=== PATIENT | female | born 1985 | race Caucasian/White ===

== ENCOUNTER 2019-11-19 16:36 | Inpatient (IN) | payer BC ==
[~2019-11-19 16:36] MED LIST: Bupivacaine 0.25% 10 ML SDV ONE
[2019-11-19] MEDS ORDERED: Nalbuphine 10 MG/ML Syringe IVPUSH PRN (17:11)
[2019-11-19] MEDS ORDERED: Sodium Chloride 0.9% 10 ML Syringe FLUSH PRN (17:11)
[2019-11-19] MEDS ORDERED: Ondansetron 4 MG/2 ML SDV IVPUSH PRN ×2 (17:11→18:38)
--- NOTE | 2019-11-19 17:14 | PCM.LDHP ---
L&D History of Present Illness - General Date of Service: 11/19/19 Admit Problem/Dx: Patient Status Order with Admit Dx/Problem 11/19/19 17:12 Patient Status [ADT] Routine Admission Diagnosis/Problem Admission Diagnosis/Problem Normal labor Source of Information: Patient History Limitations: Reports: No Limitations - History of Present Illness Introduction:: Patient is a 34 y/o at 38 6/7 wks who presents in labor. Contractions started early this AM. Rates as a 09/08. No bleeding or LOF - Related Data Allergies/Adverse Reactions: Allergies Allergy/AdvReac Type Severity Reaction Status Date / Time No Known Allergies Allergy Verified 11/19/19 17:58 Past Medical History Respiratory History: Reports: Asthma Hematologic History: Reports: Blood Transfusion(s) - Past Surgical History HEENT Surgical History: Reports: LASIK Musculoskeletal Surgical History: Reports: Other (See Below) (bone cyst of arm) Social & Family History - Tobacco Use Smoking Status *Q: Never Smoker - Alcohol Use Alcohol Use History: No - Recreational Drug Use Recreational Drug Use: No H&P Review of Systems - Review of Systems: Review Of Systems: See Below General: Reports: No Symptoms Pulmonary: Reports: No Symptoms Cardiovascular: Reports: No Symptoms Gastrointestinal: Reports: Abdominal Pain Genitourinary: Reports: No Symptoms Musculoskeletal: Reports: No Symptoms Psychiatric: Reports: No Symptoms L&D Exam - Exam Exam: See Below - OB Specific Contraction Intensity: Moderate to Strong Movement: Active Heart Tones: Present Heart Tones per Min: 135 Heart Rate (FHR) Variability: Moderate (6-25 bmp) Presentation: Vertex - Barrientos Score Barrientos Score Cervix Position: Midposition Barrientos Score Consistency: Soft Barrientos Score Effacement: >80% Barrientos Score Dilation: > 5 cm Barrientos Score 's Station: -1 ,0 Barrientos Score Total: 11 - Exam General: Alert, Oriented, Cooperative Lungs: Clear to Auscultation, Normal Respiratory Effort Cardiovascular: Regular Rate, Regular Rhythm GI/Abdominal Exam: Soft, Non-Tender Extremities: Normal Inspection - Patient Data Result Diagrams: 11/19/19 17:40 - Problem List (1) 38 weeks gestation of SNOMED Code(s): 75408791 ICD Code: Z3A.38 - 38 WEEKS GESTATION OF Status: Acute Current Visit: Yes (2) Normal labor SNOMED Code(s): 64966361 ICD Code: O80 - ENCOUNTER FOR FULL-TERM UNCOMPLICATED DELIVERY; Z37.9 - OUTCOME OF DELIVERY, UNSPECIFIED Status: Acute Current Visit: Yes Problem List Initiated/Reviewed/Updated: Yes Orders Last 24hrs: Active Orders 24 hr Category Date Time Status Patient Status [ADT] Routine ADT 11/19/19 17:12 Ordered Activity as Tolerated [RC] PFP Care 11/19/19 17:12 Ordered Communication Order [RC] ASDIRECTED Care 11/19/19 17:12 Ordered Heart Tones [RC] ASDIRECTED Care 11/19/19 17:12 Ordered Non Stress Test [RC] PER UNIT ROUTINE Care 11/19/19 17:12 Ordered Notify Provider [RC] PRN Care 11/19/19 17:12 Ordered Peripheral IV Care [RC] . DIRECTED Care 11/19/19 17:12 Ordered Vital Signs [RC] PER UNIT ROUTINE Care 11/19/19 17:12 Ordered Regular Diet [DIET] Diet 11/19/19 Dinner Ordered CBC W/O DIFF,HEMOGRAM [HEME] Routine Lab 11/19/19 17:11 Ordered CORONAVIRUS COVID-19 LUIS A [MOLEC] Routine Lab 11/19/19 17:11 Ordered RAPID PLASMA REAGIN,RPR [CHEM] Routine Lab 11/19/19 17:12 Ordered TYPE AND SCREEN [BBK] Routine Lab 11/19/19 17:11 Ordered Lactated Ringers [Ringers, Lactated] 1,000 ml Med 11/19/19 17:15 Ordered IV ASDIRECTED Nalbuphine [Nubain] Med 11/19/19 17:11 Ordered 10 mg IVPUSH Q2H PRN Ondansetron [Zofran] Med 11/19/19 17:11 Ordered 4 mg IVPUSH Q4H PRN Oxytocin/Lactated Ringers [Pitocin in LR 10 Units/1,000 Med 11/19/19 17:15 Ordered ML] 10 unit in 1,000 ml IV .CONTINUOUS Sodium Chloride 0.9% [Saline Flush] Med 11/19/19 17:11 Ordered 10 ml FLUSH ASDIRECTED PRN Electronic Heart Tones Ext w TOCO [WOMSER] Oth 11/19/19 17:12 Ordered Routine Electronic Heart Tones Internal [WOMSER] Per Unit Oth 11/19/19 17:12 Ord ered Routine Peripheral IV Insertion Adult [OM.PC] Routine Oth 11/19/19 17:12 Ordered Resuscitation Status Routine Resus Stat 11/19/19 17:11 Ordered Assessment/Plan Comment:: * Labs done * GBS negative * Pain management per patient preference * Anticipate
[2019-11-19] MEDS ORDERED: Oxytocin/Lactated Ringers 10 UNIT/1,000 ML BAG IV SCH (17:15)
[2019-11-19] MEDS: Lactated Ringers 1,000 ML IV SCH ×2 (17:58→19:15)
[2019-11-19] MEDS ORDERED: fentaNYL 100 MCG/2 ML SDV EPIDUR PRN (18:38)
[2019-11-19] MEDS ORDERED: ePHEDrine 50 MG/ML SDV IVPUSH PRN (18:38)
--- NOTE | 2019-11-19 18:40 | PCM.PREANE ---
Preanesthetic Assessment - Anesthesia/Transfusion/Family Hx Anesthesia History: Prior Anesthesia Without Reaction Family History of Anesthesia Reaction: No Transfusion History: Prior Transfusion Without Reaction Intubation History: Unknown - Review of Systems General: No Symptoms Pulmonary: No Symptoms (Asthma- last used 6 months ago.) Cardiovascular: No Symptoms Gastrointestinal: No Symptoms (GERD), Nausea Neurological: No Symptoms Other: Reports: None - Physical Assessment NPO Status Date: 11/19/19 NPO Status Time: 10:00 Vital Signs: Last Vital Signs Temp 36.6 C 11/19/19 17:12 Pulse 87 11/19/19 17:12 Resp 16 11/19/19 17:12 BP 129/80 11/19/19 17:12 Pulse Ox Height: 1.7 m Weight: 67.132 kg ASA Class: 2 Mental Status: Alert & Oriented x3 Airway Class: Mallampati = 2 Dentition: Reports: Normal Dentition, Caries Thyro-Mental Finger Breadths: 3 Mouth Opening Finger Breadths: 3 ROM/Head Extension: Full Lungs: Clear to Auscultation, Normal Respiratory Effort Cardiovascular: Regular Rate, Regular Rhythm, No Murmurs - Lab Values: Laboratory Last Values WBC 14.15 K/mm3 (3.98-10.04) H 11/19/19 17:40 RBC 4.38 M/mm3 (3.98-5.22) 11/19/19 17:40 Hgb 13.9 gm/dl (11.2-15.7) 11/19/19 17:40 Hct 41.0 % (34.1-44.9) 11/19/19 17:40 MCV 93.6 fl (79.4-94.8) 11/19/19 17:40 MCH 31.7 pg (25.6-32.2) 11/19/19 17:40 MCHC 33.9 g/dl (32.2-35.5) 11/19/19 17:40 RDW Std Deviation 42.5 fL (36.4-46.3) 11/19/19 17:40 Plt Count 231 K/mm3 (182-369) 11/19/19 17:40 MPV 8.5 fl (9.4-12.3) L 11/19/19 17:40 Above labs reviewed and noted and within acceptable ranges to proceed with epidural. 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: Musculoskeletal History: Reports: Other (See Below) Other Musculoskeletal History: bone cyst left humerous removed Hematologic History: Reports: Blood Transfusion(s) - Past Surgical History HEENT Surgical History: Reports: LASIK Musculoskeletal Surgical History: Reports: Other (See Below) (bone cyst of arm) - SUBSTANCE USE Smoking Status *Q: Never Smoker Second Hand Smoke Exposure: No Recreational Drug Use History: No - HOME MEDS Home Medications: Home Meds Ascorbic Acid [Vitamin C] 1 tab PO DAILY 11/19/19 [History] Esomeprazole Magnesium [Nexium] 20 mg PO DAILY 11/19/19 [History] Lysine 1,000 mg PO DAILY 11/19/19 [History] Pnv No.95/Ferrous Fum/Folic AC [ Tablet] 1 each PO DAILY 11/19/19 [History] - CURRENT (IN HOUSE) MEDS Current Meds: Current Medications Ephedrine Sulfate (Ephedrine Sulfate) 5 mg IVPUSH ASDIRECTED PRN PRN Reason: Hypotension Oxytocin/Lactated Ringer's (Pitocin In Lr 10 Units/1,000 Ml) 10 unit in 1,000 mls @ 500 mls/hr IV .CONTINUOUS CHECO Lactated Ringer's (Ringers, Lactated) 1,000 mls @ 100 mls/hr IV ASDIRECTED CHECO Last Admin: 11/19/19 17:58 Dose: 400 mls/hr Documented by: Nalbuphine HCl (Nubain) 10 mg IVPUSH Q2H PRN PRN Reason: Pain Ondansetron HCl (Zofran) 4 mg IVPUSH Q4H PRN PRN Reason: Nausea/Vomiting Last Admin: 11/19/19 18:03 Dose: 4 mg Documented by: Ondansetron HCl (Zofran) 4 mg IVPUSH ONETIME PRN PRN Reason: Nausea/Vomiting Sodium Chloride (Saline Flush) 10 ml FLUSH ASDIRECTED PRN PRN Reason: Keep Vein Open
[2019-11-19] MEDS ORDERED: Phenylephrine 1 MG in Sodium Chloride 0.9% 10 ML IV SCH (18:45)
[2019-11-19] MEDS ORDERED: Bupivacaine/fentaNYL/NS 100 ML Bag EPIDUR SCH (18:45)
--- NOTE | 2019-11-20 00:34 | PCM.DEL ---
L & D Note - General Info Date of Service: 11/19/19 - Delivery Note Labor: Spontaneous Delivery Outcome: Livebirth Delivery Method: Spontaneous Vaginal Delivery-Single Delivery Mode: Vacuum Extraction Presentation: Right Occiput Anterior (OSCAR) Nuchal Cord: None Anesthesia Type: Epidural Amniotic Fluid Description: Clear Episiotomy Type: None Laceration: 2nd Degree, Perineal Suture type: Vicryl Suture size: 2-0 Placenta: Intact, Spontaneous Cord: 3 Vessels Estimated Blood Loss: 200 Resuscitation Needed: Yes Emerson: Bulb Syringe, Stimulated, Warmed, Harper Used, Warmer Used Delivery Comments (Free Text/Narrative):: The patient was pushing in the dorsal lithotomy position. Sterile vaginal exam complete/complete/+3-4 station. head in OSCAR presentation. Maternal pushing effort was good and the pelvis was felt to be adequate for an instrument assisted delivery. Given maternal exhaustion (pushed about 2.5 hrs) the decision was made to proceed with vacuum assisted vaginal delivery. The mushroom cup was placed at 2347. Subsequent vacuum assisted vaginal delivery with pushing over two contractions. Total pressure applied 550 mm Hg. Total pop offs: 0. Suction was removed following delivery of the head. No nuchal cord. The remainder of the infant delivered without difficulty. Delivery at 2354. Infant placed on maternal abdomen. Cord clamped and cut. Cord blood obtained. Placenta allowed time to separate and expelled intact. Inspection of the perineum showed a 2nd degree laceration. This was repaired with a 2-0 Vicryl in the typical fashion - General Info Date of Service: 11/19/19 - Patient Data Vitals - Most Recent: Last Vital Signs Temp 36.6 C 11/19/19 17:12 Pulse 87 11/19/19 17:12 Resp 16 11/19/19 17:12 BP 129/80 11/19/19 17:12 Pulse Ox 100 11/19/19 18:38 Weight - Most Recent: 67.132 kg I&O - Last 24 Hours: Intake & Output 11/19/19 11/19/19 11/20/19 14:59 22:59 06:59 Intake Total 1000 Output Total 700 Balance 300 Lab Results Last 24 Hours: Laboratory Results - last 24 hr 11/19/19 11/19/19 11/19/19 Range/Units 17:40 17:40 17:40 WBC 14.15 H (3.98-10.04) K/mm3 RBC 4.38 (3.98-5.22) M/mm3 Hgb 13.9 (11.2-15.7) gm/dl Hct 41.0 (34.1-44.9) % MCV 93.6 (79.4-94.8) fl MCH 31.7 (25.6-32.2) pg MCHC 33.9 (32.2-35.5) g/dl RDW Std Deviation 42.5 (36.4-46.3) fL Plt Count 231 (182-369) K/mm3 MPV 8.5 L (9.4-12.3) fl RPR Non-reactive (NONREACTIVE) COVID-19 (LUIS A) (NEGATIVE) Blood Type O POSITIVE Gel Antibody Screen Negative 11/19/19 Range/Units 19:39 WBC (3.98-10.04) K/mm3 RBC (3.98-5.22) M/mm3 Hgb (11.2-15.7) gm/dl Hct (34.1-44.9) % MCV (79.4-94.8) fl MCH (25.6-32.2) pg MCHC (32.2-35.5) g/dl RDW Std Deviation (36.4-46.3) fL Plt Count (182-369) K/mm3 MPV (9.4-12.3) fl RPR (NONREACTIVE) COVID-19 (LUIS A) Negative (NEGATIVE) Blood Type Gel Antibody Screen Med Orders - Current: Current Medications Ephedrine Sulfate (Ephedrine Sulfate) 5 mg IVPUSH ASDIRECTED PRN PRN Reason: Hypotension Fentanyl (Sublimaze) 100 mcg EPIDUR Q3H PRN PRN Reason: Pain Last Admin: 11/19/19 18:54 Dose: 100 mcg Documented by: Fentanyl/Bupivacaine HCl (Fentanyl/Bupivacaine/Ns 2 Mcg-0.125% 100 Ml) 100 ml EPIDUR ASDIRECTED CHECO Last Admin: 11/19/19 18:54 Dose: 100 ml Documented by: Oxytocin/Lactated Ringer's (Pitocin In Lr 10 Units/1,000 Ml) 10 unit in 1,000 mls @ 500 mls/hr IV .CONTINUOUS CHECO Last Admin: 11/20/19 00:17 Dose: 500 mls/hr Documented by: Lactated Ringer's (Ringers, Lactated) 1,000 mls @ 100 mls/hr IV ASDIRECTED CHECO Last Admin: 11/19/19 19:15 Dose: 400 mls/hr Documented by: Phenylephrine HCl 1 mg/ Sodium (Chloride) 10.1 mls @ 1 mls/sec IV TITRATE CHECO; Protocol Nalbuphine HCl (Nubain) 10 mg IVPUSH Q2H PRN PRN Reason: Pain Ondansetron HCl (Zofran) 4 mg IVPUSH Q4H PRN PRN Reason: Nausea/Vomiting Last Admin: 11/19/19 18:03 Dose: 4 mg Documented by: Ondansetron HCl (Zofran) 4 mg IVPUSH ONETIME PRN PRN Reason: Nausea/Vomiting Sodium Chloride (Saline Flush) 10 ml FLUSH ASDIRECTED PRN PRN Reason: Keep Vein Open - Problem List & Annotations (1) 38 weeks gestation of SNOMED Code(s): 36911831 Code(s): Z3A.38 - 38 WEEKS GESTATION OF Status: Acute Current Visit: Yes (2) Normal labor SNOMED Code(s): 23084449 Code(s): O80 - ENCOUNTER FOR FULL-TERM UNCOMPLICATED DELIVERY; Z37.9 - OUTCOME OF DELIVERY, UNSPECIFIED Status: Acute Current Visit: Yes (3) Vacuum-assisted vaginal delivery SNOMED Code(s): 34799157494585438 Code(s): Z37.9 - OUTCOME OF DELIVERY, UNSPECIFIED Status: Acute Current Visit: Yes - Problem List Review Problem List Initiated/Reviewed/Updated: Yes - My Orders Last 24 Hours: My Active Orders 11/19/19 Dinner Regular Diet [DIET] 11/19/19 17:11 Nalbuphine [Nubain] 10 mg IVPUSH Q2H PRN Ondansetron [Zofran] 4 mg IVPUSH Q4H PRN Sodium Chloride 0.9% [Saline Flush] 10 ml FLUSH ASDIRECTED PRN Resuscitation Status Routine 11/19/19 17:12 Patient Status [ADT] Routine Activity as Tolerated [RC] PFP Communication Order [RC] ASDIRECTED Heart Tones [RC] ASDIRECTED Non Stress Test [RC] PER UNIT ROUTINE Notify Provider [RC] PRN Vital Signs [RC] PER UNIT ROUTINE Electronic Heart Tones Ext w TOCO [WOMSER] Routine Electronic Heart Tones Internal [WOMSER] Per Unit Routine Peripheral IV Insertion Adult [OM.PC] Routine 11/19/19 17:15 Lactated Ringers [Ringers, Lactated] 1,000 ml IV ASDIRECTED Oxytocin/Lactated Ringers [Pitocin in LR 10 Units/1,000 ML] 10 unit in 1,000 ml IV .CONTINUOUS - Assessment Assessment:: PPD#0 - Plan Plan:: * Routine cares * Breast feeding * Discharge home in 2 days
[2019-11-20] MEDS ORDERED: Acetaminophen 325 MG Tab PO PRN (00:37)
[2019-11-20] MEDS ORDERED: Benzocaine/Menthol 20%-0.5% Spray 56 GM Canister TOP PRN (00:37)
[2019-11-20] MEDS: Witch Hazel Medicated Pads 40/Jar TOP PRN ×2 (02:17→17:56)
[2019-11-20] MEDS: Ibuprofen 600 MG Tab PO PRN ×3 (02:18→20:09)
[2019-11-20] MEDS: Docusate Sodium 100 MG Cap PO PRN ×2 (02:18→20:09)
[2019-11-20] MEDS ORDERED: Ammonia Inhalant Amp ONE (02:59)
[2019-11-20] MEDS ORDERED: Lactated Ringers 1,000 ML IV ONE (05:00)
--- NOTE | 2019-11-20 06:59 | PCM.PNPP ---
- General Info Date of Service: 11/20/19 Functional Status: Reports: Pain Controlled, Tolerating Diet, Ambulating, Urinating - Review of Systems General: Reports: No Symptoms Pulmonary: Reports: No Symptoms Cardiovascular: Reports: No Symptoms Gastrointestinal: Reports: No Symptoms Genitourinary: Reports: No Symptoms Musculoskeletal: Reports: No Symptoms Neurological: Reports: No Symptoms - General Info Date of Service: 11/20/19 - Patient Data Vital Signs - Most Recent: Last Vital Signs Temp 36.7 C 11/20/19 04:00 Pulse 73 11/20/19 04:00 Resp 16 11/20/19 04:00 BP 93/51 L 11/20/19 04:00 Pulse Ox 99 11/20/19 04:00 Weight - Most Recent: 67.132 kg I&O - Last 24 Hours: Intake & Output 11/19/19 11/19/19 11/20/19 14:59 22:59 06:59 Intake Total 1000 Output Total 700 Balance 300 Lab Results - Last 24 Hours: Laboratory Results - last 24 hr 11/19/19 11/19/19 11/19/19 Range/Units 17:40 17:40 17:40 WBC 14.15 H (3.98-10.04) K/mm3 RBC 4.38 (3.98-5.22) M/mm3 Hgb 13.9 (11.2-15.7) gm/dl Hct 41.0 (34.1-44.9) % MCV 93.6 (79.4-94.8) fl MCH 31.7 (25.6-32.2) pg MCHC 33.9 (32.2-35.5) g/dl RDW Std Deviation 42.5 (36.4-46.3) fL Plt Count 231 (182-369) K/mm3 MPV 8.5 L (9.4-12.3) fl RPR Non-reactive (NONREACTIVE) COVID-19 (LUIS A) (NEGATIVE) Blood Type O POSITIVE Gel Antibody Screen Negative 11/19/19 Range/Units 19:39 WBC (3.98-10.04) K/mm3 RBC (3.98-5.22) M/mm3 Hgb (11.2-15.7) gm/dl Hct (34.1-44.9) % MCV (79.4-94.8) fl MCH (25.6-32.2) pg MCHC (32.2-35.5) g/dl RDW Std Deviation (36.4-46.3) fL Plt Count (182-369) K/mm3 MPV (9.4-12.3) fl RPR (NONREACTIVE) COVID-19 (LUIS A) Negative (NEGATIVE) Blood Type Gel Antibody Screen Med Orders - Current: Current Medications Acetaminophen (Tylenol) 650 mg PO Q4H PRN PRN Reason: mild pain or fever Benzocaine/Menthol (Dermoplast Pain Relief [place]) 0 gm TOP ASDIRECTED PRN PRN Reason: Perineal Comfort Measure Last Admin: 11/20/19 02:17 Dose: 1 applic Documented by: Docusate Sodium (Colace) 100 mg PO BID PRN PRN Reason: Constipation Last Admin: 11/20/19 02:18 Dose: 100 mg Documented by: Lactated Ringer's (Ringers, Lactated) 1,000 mls @ 500 mls/hr IV .BOLUS ONE Stop: 11/20/19 06:59 Last Admin: 11/20/19 05:00 Dose: 500 mls/hr Documented by: Ibuprofen (Motrin) 600 mg PO Q6H PRN PRN Reason: Mild pain or fever Last Admin: 11/20/19 02:18 Dose: 600 mg Documented by: Zenon Rivera (Gary) 1 pad TOP ASDIRECTED PRN PRN Reason: Perineal Comfort Measure Last Admin: 11/20/19 02:17 Dose: 1 applic Documented by: Discontinued Medications Ammonia (Aromatic Spirit) (Ammonia Aromatic Inhalant) Confirm Administered Dose 1 ampule .ROUTE .STK-MED ONE Stop: 11/20/19 03:00 Ephedrine Sulfate (Ephedrine Sulfate) 5 mg IVPUSH ASDIRECTED PRN PRN Reason: Hypotension Fentanyl (Sublimaze) 100 mcg EPIDUR Q3H PRN PRN Reason: Pain Last Admin: 11/19/19 18:54 Dose: 100 mcg Documented by: Fentanyl/Bupivacaine HCl (Fentanyl/Bupivacaine/Ns 2 Mcg-0.125% 100 Ml) 100 ml EPIDUR ASDIRECTED CHECO Last Admin: 11/19/19 18:54 Dose: 100 ml Documented by: Oxytocin/Lactated Ringer's (Pitocin In Lr 10 Units/1,000 Ml) 10 unit in 1,000 mls @ 500 mls/hr IV .CONTINUOUS CHECO Last Admin: 11/20/19 00:17 Dose: 500 mls/hr Documented by: Lactated Ringer's (Ringers, Lactated) 1,000 mls @ 100 mls/hr IV ASDIRECTED CHECO Last Admin: 11/19/19 19:15 Dose: 400 mls/hr Documented by: Phenylephrine HCl 1 mg/ Sodium (Chloride) 10.1 mls @ 1 mls/sec IV TITRATE CHECO; Protocol Nalbuphine HCl (Nubain) 10 mg IVPUSH Q2H PRN PRN Reason: Pain Ondansetron HCl (Zofran) 4 mg IVPUSH Q4H PRN PRN Reason: Nausea/Vomiting Last Admin: 11/19/19 18:03 Dose: 4 mg Documented by: Ondansetron HCl (Zofran) 4 mg IVPUSH ONETIME PRN PRN Reason: Nausea/Vomiting Sodium Chloride (Saline Flush) 10 ml FLUSH ASDIRECTED PRN PRN Reason: Keep Vein Open - Interaction Infant Disposition, : in Room with Family Interaction: Unable to Hold at this Time Infant Feeding: Attempted ; Nursed Fair/Poor Support Person: - Recovery Exam Fundal Tone: Firm Fundal Level: At Umbilicus Fundal Placement: Left Lochia Amount: Small Lochia Color: Rubra/Red Perineum Description: Edematous Bladder Status: Voiding Urinary Elimination: Voided - Exam General: Alert, Oriented, Cooperative GI/Abdominal Exam: Soft, Non-Tender Extremities: Normal Inspection Skin: Warm, Dry, Intact - Problem List & Annotations (1) 38 weeks gestation of SNOMED Code(s): 66073038 Code(s): Z3A.38 - 38 WEEKS GESTATION OF Status: Acute Current Visit: Yes (2) Normal labor SNOMED Code(s): 51636067 Code(s): O80 - ENCOUNTER FOR FULL-TERM UNCOMPLICATED DELIVERY; Z37.9 - OUTCOME OF DELIVERY, UNSPECIFIED Status: Acute Current Visit: Yes (3) Vacuum-assisted vaginal delivery SNOMED Code(s): 35664072828960555 Code(s): Z37.9 - OUTCOME OF DELIVERY, UNSPECIFIED Status: Acute Current Visit: Yes - Problem List Review Problem List Initiated/Reviewed/Updated: Yes - My Orders Last 24 Hours: My Active Orders 11/19/19 17:11 Resuscitation Status Routine 11/20/19 00:37 Acetaminophen [TylenoL] 650 mg PO Q4H PRN Benzocaine/Menthol [Dermoplast Pain Relief [place]] See Dose Instructions TOP ASDIRECTED PRN Docusate Sodium [Colace] 100 mg PO BID PRN Ibuprofen [Motrin] 600 mg PO Q6H PRN witch Joseph [Tucks] 1 pad TOP ASDIRECTED PRN 11/20/19 00:37 Activity as Tolerated [RC] PER UNIT ROUTINE Vital Signs [RC] Q4HR Assess Lochia [WOMSER] Per Unit Routine Assess Uterine Involution [WOMSER] Per Unit Routine Breast Pump [WOMSER] Per Unit Routine Ice Therapy [OM.PC] Per Unit Routine Perineal Care [OM.PC] Per Unit Routine Peripheral IV Discontinue [OM.PC] Routine Sitz Bath [OM.PC] Per Unit Routine 11/20/19 00:45 Heat Therapy [OM.PC] PRN 11/20/19 05:00 Lactated Ringers [Ringers, Lactated] 1,000 ml IV .BOLUS 11/20/19 Breakfast Regular Diet [DIET] 11/21/19 00:45 Heat Therapy [OM.PC] PRN - Assessment Assessment:: PPD#1 - Plan Plan:: * Routine cares * Breast feeding * Discharge home tomorrow
--- NOTE | 2019-11-20 09:37 | PCM48HPAN ---
Post Anesthesia Note - EVALUATION WITHIN 48HRS OF ANESTHETIC Vital Signs in Normal Range: Yes Patient Participated in Evaluation: Yes Respiratory Function Stable: Yes Airway Patent: Yes Cardiovascular Function Stable: Yes Hydration Status Stable: Yes Pain Control Satisfactory: Yes Nausea and Vomiting Control Satisfactory: Yes Mental Status Recovered: Yes Vital Signs: Last Vital Signs Temp 36.7 C 11/20/19 04:00 Pulse 73 11/20/19 04:00 Resp 16 11/20/19 04:00 BP 93/51 L 11/20/19 04:00 Pulse Ox 99 11/20/19 04:00
[2019-11-20] MEDS ORDERED: Misoprostol 200 MCG Tab ONE (13:00)
[2019-11-21] MEDS: Ibuprofen 600 MG Tab PO PRN ×2 (04:57→12:26)
--- NOTE | 2019-11-21 10:20 | PCM.SN.2 ---
- Free Text/Narrative Note: Post Progress Note PPD #2 Subjective: Doing well overall. Ambulating without difficulty. Lochia minimal. Voiding without difficulty. Tolerating regular diet without nausea or vomiting. Pain controlled with oral medications. Breast-feeding with minimal difficulty. Objective: Vitals: Vital Signs - 24 hr 11/20/19 11/20/19 11/20/19 11:38 15:38 20:12 Temperature 36.6 C 37.2 C Pulse, 89 91 93 Peripheral Respiratory 15 15 Rate Blood Pressure 107/61 104/65 106/56 L O2 Sat by Pulse 100 99 98 Oximetry 11/21/19 11/21/19 04:07 08:14 Temperature 36.9 C 36.7 C Pulse, 81 87 Peripheral Respiratory 14 14 Rate Blood Pressure 108/65 102/72 O2 Sat by Pulse 97 100 Oximetry Physical Exam General: Alert and oriented, no acute distress Lungs: Clear to auscultation bilaterally Heart: Regular rate and rhythm Abdomen: Soft, minimal appropriate tenderness, non-distended, fundus midline, nontender, and 2 fingerbreadths below the umbilicus Extremities: Trace edema in bilateral lower extremities to mid shins ASSESSMENT: 34-year-old female -0-0-1 s/p vacuum-assisted vaginal delivery PPD #2, complicated by history of asthma PLAN: Doing well Breast-feeding with minimal difficulty. Assist as needed Lochia minimal. Continue to monitor for appropriate lochia. Continue routine care Discharge home today Michael Pedro MD 10:19 AM 11/21/2019
--- NOTE | 2019-11-21 10:34 | PCM.DCSUM1 ---
Discharge Summary - Hospital Course Free Text/Narrative:: - General Info Date of Service: 11/19/19 - Delivery Note Labor: Spontaneous Delivery Outcome: Livebirth Infant Delivery Method: Spontaneous Vaginal Delivery-Single Infant Delivery Mode: Vacuum Extraction Presentation: Right Occiput Anterior (OSCAR) Nuchal Cord: None Anesthesia Type: Epidural Amniotic Fluid Description: Clear Episiotomy Type: None Laceration: 2nd Degree, Perineal Suture type: Vicryl Suture size: 2-0 Placenta: Intact, Spontaneous Cord: 3 Vessels Estimated Blood Loss: 200 Resuscitation Needed: Yes Daggett: Bulb Syringe, Stimulated, Warmed, [place] Used, Warmer Used Delivery Comments (Free Text/Narrative):: The patient was pushing in the dorsal lithotomy position. Sterile vaginal exam complete/complete/+3-4 station. head in OSCAR presentation. Maternal pushing effort was good and the pelvis was felt to be adequate for an instrument assisted delivery. Given maternal exhaustion (pushed about 2.5 hrs) the deci rosa was made to proceed with vacuum assisted vaginal delivery. The mushroom cup was placed at 2347. Subsequent vacuum assisted vaginal delivery with pushing over two contractions. Total pressure applied 550 mm Hg. Total pop offs: 0. Suction was removed following delivery of the head. No nuchal cord. The remainder of the delivered without difficulty. Delivery at 2354. placed on maternal abdomen. Cord clamped and cut. Cord blood obtained. Placenta allowed time to separate and expelled intact. Inspection of the perineum showed a 2nd degree laceration. This was repaired with a 2-0 Vicryl in the typical fashion HPI Initial Comments: - General Info Date of Service: 11/19/19 - Delivery Note Labor: Spontaneous Delivery Outcome: Livebirth Infant Delivery Method: Spontaneous Vaginal Delivery-Single Infant Delivery Mode: Vacuum Extraction Presentation: Right Occiput Anterior (OSCAR) Nuchal Cord: None Anesthesia Type: Epidural Amniotic Fluid Description: Clear Episiotomy Type: None Laceration: 2nd Degree, Perineal Suture type: Vicryl Suture size: 2-0 Placenta: Intact, Spontaneous Cord: 3 Vessels Estimated Blood Loss: 200 Resuscitation Needed: Yes : Bulb Syringe, Stimulated, Warmed, [place] Used, Warmer Used Delivery Comments (Free Text/Narrative):: The patient was pushing in the dorsal lithotomy position. Sterile vaginal exam complete/complete/+3-4 station. head in OSCAR presentation. Maternal pushing effort was good and the pelvis was felt to be adequate for an instrument assisted delivery. Given maternal exhaustion (pushed about 2.5 hrs) the decision was made to proceed with vacuum assisted vaginal delivery. The mushroom cup was placed at 2347. Subsequent vacuum assisted vaginal delivery with pushing over two contractions. Total pressure applied 550 mm Hg. Total pop offs: 0. Suction was removed following delivery of the head. No nuchal cord. The remainder of the delivered without difficulty. Delivery at 2354. Infant placed on maternal abdomen. Cord clamped and cut. Cord blood obtained. Placenta allowed time to separate and expelled intact. Inspection of the perineum showed a 2nd degree laceration. This was repaired with a 2-0 Vicryl in the typical fashion Brief History: - General Info. Date of Service: 11/19/19. - Delivery Note. Labor: Spontaneous. Delivery Outcome: Livebirth. Delivery Method: Spontaneous Vaginal Delivery-Single. Infant Delivery Mode: Vacuum Extraction. Presentation: Right Occiput Anterior (OSCAR). Nuchal Cord: None. Anesthesia Type: Epidural. Amniotic Fluid Description: Clear. Episiotomy Type: None. Laceration: 2nd Degree, Perineal. Suture type: Vicryl. Suture size: 2- 0. Placenta: Intact, Spontaneous. Cord: 3 Vessels. Estimated Blood Loss: 200. Resuscitation Needed: Yes. Daggett: Bulb Syringe, Stimulated, Warmed, [place] Used, Warmer Used. Delivery Comments (Free Text/Narrative):: The patient was pushing in the dorsal lithotomy position. Sterile vaginal exam complete/complete/+3-4 station. head in OSCAR presentation. Maternal pushing effort was good and the pelvis was felt to be adequate for an instrument assisted delivery. Given maternal exhaustion (pushed about 2.5 hrs) the decision was made to proceed with vacuum assisted vaginal delivery. The mushroom cup was placed at 2347. Subsequent vacuum assisted vaginal delivery with pushing over two contractions. Total pressure applied 550 mm Hg. Total pop offs: 0. Suction was removed following delivery of the head. No nuchal cord. The remainder of the delivered without difficulty. Delivery at 2354. placed on maternal abdomen. Cord clamped and cut. Cord blood obtained. Placenta allowed time to separate and expelled intact. Inspection of the perineum showed a 2nd degree laceration. This was repaired with a 2-0 Vicryl in the typical fashion Diagnosis: Stroke: No - Discharge Data Discharge Date: 11/21/19 Discharge Disposition: Home, Self-Care 01 Condition: Good - Referral to Home Health Primary Care Physician: Olivia Ordaz MD - Discharge Diagnosis/Problem(s) (1) 38 weeks gestation of SNOMED Code(s): 35721865 ICD Code: Z3A.38 - 38 WEEKS GESTATION OF Status: Acute Current Visit: Yes (2) Vacuum-assisted vaginal delivery SNOMED Code(s): 88920422779092585 ICD Code: Z37.9 - OUTCOME OF DELIVERY, UNSPECIFIED Status: Acute Current Visit: Yes (3) Asthma affecting , antepartum SNOMED Code(s): 675281229, 349321554 ICD Code: O99.519 - DISEASES OF THE RESP SYS COMP , UNSP TRIMESTER; J45.909 - UNSPECIFIED ASTHMA, UNCOMPLICATED Status: Acute Current Visit: Yes - Patient Summary/Data Hospital Course: Kamila Aparicio was admitted for spontaneous labor. She was GBS negative. She was given pitocin for augmentation. She was given an epidural for anesthesia. She had artificial rupture of membranes with clear fluid. She progressed to complete and began pushing. She was pushing for approximately 2.5 hours and had not delivered the infant and was becoming somewhat fatigued. She desired to have a vacuum-assisted delivery and this was performed. On 11/19/2019 she had a vacuum-assisted vaginal delivery of a live female at 23:45. Apgars of 8 and 9. Weight of 3470 g (7 pounds 10.4 ounces). Please see delivery note for full details. Her course was uneventful. Her pain was well controlled and she had minimal lochia. She was ambulating, tolerating a regular diet and voiding normally. She was breast-feeding with minimal difficulty. She was afebrile and her hematocrit was 41.0 on admission. She desired to be discharged home on the morning of PPD #2. Her blood type is O+. - Patient Instructions Activity: Apply Ice, As Tolerated Driving: May Drive Today Showering/Bathing: May Shower Notify Provider of: Fever, Increased Pain, Swelling and Redness, Drainage, Nausea and/or Vomiting Other/Special Instructions: Please contact your physician's office if you have heavy vaginal bleeding enough to soak a pad in less than an hour for several hours. Monitor for any signs of an infection in the breasts with severe pain or redness of the breast. - Discharge Plan *PRESCRIPTION DRUG MONITORING PROGRAM REVIEWED*: Not Applicable *COPY OF PRESCRIPTION DRUG MONITORING REPORT IN PATIENT HOLLIS: Not Applicable Home Medications: Home Meds Ascorbic Acid [Vitamin C] 1 tab PO DAILY 11/19/19 [History] Lysine 1,000 mg PO DAILY 11/19/19 [History] Pnv No.95/Ferrous Fum/Folic AC [ Tablet] 1 each PO DAILY 11/19/19 [History] Acetaminophen [Tylenol] 650 mg PO Q6H PRN tablet 11/21/19 [Rx] Benzocaine/Menthol [Dermoplast Pain Relief Irons] 1 spray TOP ASDIRECTED PRN canister 11/21/19 [Rx] Docusate Sodium [Colace] 100 mg PO BID PRN cap 11/21/19 [Rx] Ibuprofen [Motrin] 600 mg PO Q6H PRN tablet 11/21/19 [Rx] witch Joseph [Tucks] 1 pad TOP ASDIRECTED PRN pad 11/21/19 [Rx] Patient Handouts: Care of a Perineal Tear, Care After Vaginal Del benji Referrals: Olivia Ordaz MD [Primary Care Provider] - (Follow-up in 3 weeks for routine visit or earlier as needed.) - Discharge Summary/Plan Comment DC Time >30 min.: No - Patient Data Vitals - Most Recent: Last Vital Signs Temp 36.7 C 11/21/19 08:14 Pulse 87 11/21/19 08:14 Resp 14 11/21/19 08:14 BP 102/72 11/21/19 08:14 Pulse Ox 100 11/21/19 08:14 Weight - Most Recent: 67.132 kg I&O - Last 24 hours: Intake & Output 11/20/19 11/21/19 11/21/19 22:59 06:59 14:59 Intake Total 660 Balance 660 Med Orders - Current: Current Medications Acetaminophen (Tylenol) 650 mg PO Q4H PRN PRN Reason: mild pain or fever Last Admin: 11/20/19 15:39 Dose: 650 mg Documented by: Benzocaine/Menthol (Dermoplast Pain Relief Irons) 0 gm TOP ASDIRECTED PRN PRN Reason: Perineal Comfort Measure Last Admin: 11/20/19 02:17 Dose: 1 applic Documented by: Docusate Sodium (Colace) 100 mg PO BID PRN PRN Reason: Constipation Last Admin: 11/20/19 20:09 Dose: 100 mg Documented by: Ibuprofen (Motrin) 600 mg PO Q6H PRN PRN Reason: Mild pain or fever Last Admin: 11/21/19 04:57 Dose: 600 mg Documented by: Zenon Rivera (Tucks) 1 pad TOP ASDIRECTED PRN PRN Reason: Perineal Comfort Measure Last Admin: 11/20/19 17:56 Dose: 1 tub Documented by: Discontinued Medications Ammonia (Aromatic Spirit) (Ammonia Aromatic Inhalant) Confirm Administered Dose 1 ampule .ROUTE .STK-MED ONE Stop: 11/20/19 03:00 Last Admin: 11/20/19 21:50 Dose: Not Given Documented by: Bupivacaine HCl (Sensorcaine-Mpf 0.25%) 10 ml .ROUTE .STK-MED ONE Stop: 11/19/19 00:01 Ephedrine Sulfate (Ephedrine Sulfate) 5 mg IVPUSH ASDIRECTED PRN PRN Reason: Hypotension Fentanyl (Sublimaze) 100 mcg EPIDUR Q3H PRN PRN Reason: Pain Last Admin: 11/19/19 18:54 Dose: 100 mcg Documented by: Fentanyl/Bupivacaine HCl (Fentanyl/Bupivacaine/Ns 2 Mcg-0.125% 100 Ml) 100 ml EPIDUR ASDIRECTED CHECO Last Admin: 11/19/19 18:54 Dose: 100 ml Documented by: Oxytocin/Lactated Ringer's (Pitocin In Lr 10 Units/1,000 Ml) 10 unit in 1,000 mls @ 500 mls/hr IV .CONTINUOUS CHECO Last Admin: 11/20/19 00:17 Dose: 500 mls/hr Documented by: Lactated Ringer's (Ringers, Lactated) 1,000 mls @ 100 mls/hr IV ASDIRECTED CHECO Last Admin: 11/19/19 19:15 Dose: 400 mls/hr Documented by: Phenylephrine HCl 1 mg/ Sodium (Chloride) 10.1 mls @ 1 mls/sec IV TITRATE CHECO; Protocol Lactated Ringer's (Ringers, Lactated) 1,000 mls @ 500 mls/hr IV .BOLUS ONE Stop: 11/20/19 06:59 Last Admin: 11/20/19 05:00 Dose: 500 mls/hr Documented by: Misoprostol (Cytotec) Confirm Administered Dose 600 mcg .ROUTE .STK-MED ONE Stop: 11/20/19 13:01 Last Admin: 11/20/19 21:50 Dose: Not Given Documented by: Nalbuphine HCl (Nubain) 10 mg IVPUSH Q2H PRN PRN Reason: Pain Ondansetron HCl (Zofran) 4 mg IVPUSH Q4H PRN PRN Reason: Nausea/Vomiting Last Admin: 11/19/19 18:03 Dose: 4 mg Documented by: Ondansetron HCl (Zofran) 4 mg IVPUSH ONETIME PRN PRN Reason: Nausea/Vomiting Sodium Chloride (Saline Flush) 10 ml FLUSH ASDIRECTED PRN PRN Reason: Keep Vein Open
[2019-11-21] MEDS: Docusate Sodium 100 MG Cap PO PRN (12:26)
== END 2019-11-21 15:10 | disposition home or self-care (01) | DRG 560 ==
LOC: JD.OBCHECK 16:36 → JD.OB 16:40 → JD.OBCHECK 17:12 → JD.OB 23:54 → OBSVTOIN 23:54
PROVIDERS: ADMIT Obstetrics & Gynecology; ATTEND Obstetrics & Gynecology
PROC: 10D07Z6 Extraction of Products of Conception, Vacuum, Via Natural or Artificial Opening (ICD-10-PCS; principal; 2019-11-19)
PROC: 0KQM0ZZ Repair Perineum Muscle, Open Approach (ICD-10-PCS; 2019-11-19)
PROC: 3E0R3BZ Introduction of Anesthetic Agent into Spinal Canal, Percutaneous Approach (ICD-10-PCS; 2019-11-19)
DX: O70.1 Second degree perineal laceration during delivery (principal); Z3A.38 38 weeks gestation of pregnancy; Z37.0 Single live birth; Z20.828 Contact with and (suspected) exposure to other viral communicable diseases
CPT/HCPCS: 36415; 51701; 51702; 59025; 59409; 85027; 86592; 86850; 86900; 86901; A9270-GY; J2405; J2590; J3010; J3490; J7120; U0002

== ENCOUNTER 2022-10-25 01:45 | Inpatient (IN) | payer OTHER ==
[2022-10-25] MEDS ORDERED: Ampicillin 2 GM in Sodium Chloride 0.9% 100 ML IV ONE (17:18)
[2022-10-25] MEDS ORDERED: Nalbuphine 10 MG/0.5 ML Syringe IVPUSH PRN (17:18)
[2022-10-25] MEDS ORDERED: Ondansetron 4 MG/2 ML SDV IVPUSH PRN (17:18)
[2022-10-25] MEDS ORDERED: Sodium Chloride 0.9% 10 ML Syringe FLUSH PRN (17:18)
[2022-10-25] MEDS ORDERED: Oxytocin/Lactated Ringers 10 UNIT/1,000 ML BAG IV SCH (17:30)
[2022-10-25] MEDS: Lactated Ringers 1,000 ML IV SCH ×2 (17:46→20:45)
[2022-10-25 18:05] LABS: HEMATOCRIT 37.6 % (34.1-44.9); HEMOGLOBIN 12.8 gm/dl (11.2-15.7); MEAN CORPUSCULAR HEMOGLOBIN 31.8 pg (25.6-32.2); MEAN CORPUSCULAR VOLUME 93.3 fl (79.4-94.8); MEAN PLATELET VOLUME 8.8 fl (9.4-12.3); PLATELET COUNT,PLT 262 K/mm3 (182-369); RED BLOOD CELL COUNT 4.03 M/mm3 (3.98-5.22); WHITE BLOOD CELL COUNT,WBC 9.06 K/mm3 (3.98-10.04)
[2022-10-25 18:37] LABS: A/G RATIO 0.5 (1-2); ALBUMIN 2.4 g/dl (3.4-5.0); ANION GAP 16.7 (5-15); BILIRUBIN TOTAL 0.3 mg/dL (0.2-1.0); BUN/CREATININE RATIO 17.5 (14-18); CREATININE 0.8 mg/dL (0.55-1.02); EST CRCL DRUG DOSING (CG) 80.42 mL/min; POTASSIUM,K 3.7 mEq/L (3.5-5.1); PROTEIN TOTAL,TP 7.2 g/dl (6.4-8.2)
[2022-10-25] MEDS ORDERED: fentaNYL 100 MCG/2 ML SDV EPIDUR PRN (19:12)
[2022-10-25] MEDS ORDERED: ePHEDrine 50 MG/ML SDV IVPUSH PRN (19:12)
[2022-10-25] MEDS ORDERED: Bupivacaine/fentaNYL/NS 100 ML Bag EPIDUR PRN (19:12)
[2022-10-25] MEDS ORDERED: diphenhydrAMINE 50 MG/ML SDV IVPUSH PRN (19:12)
[2022-10-25] MEDS ORDERED: Sodium Chloride 0.9% 10 ML Syringe FLUSH SCH (21:00)
[2022-10-25] MEDS: Ampicillin 1 GM in Sodium Chloride 0.9% 100 ML IV SCH (21:16)
[2022-10-26] MEDS ORDERED: Tranexamic Acid 1,000 MG/10 ML Vial ONE (01:52)
[2022-10-26] MEDS ORDERED: Witch Hazel Medicated Pads 40/Jar TOP PRN (02:16)
[2022-10-26] MEDS ORDERED: Benzocaine/Menthol 20%-0.5% Spray 78 GM Cannister TOP PRN (02:16)
[2022-10-26] MEDS ORDERED: Lidocaine 1% 10 ML MDV ONE (07:00)
[2022-10-26] MEDS: Ampicillin 1 GM in Sodium Chloride 0.9% 100 ML IV SCH (07:47)
[2022-10-26] MEDS: Ibuprofen 600 MG Tab PO PRN ×2 (09:42→17:26)
[2022-10-26] MEDS: Docusate Sodium 100 MG Cap PO PRN (09:42)
[2022-10-26] MEDS: Sertraline 50 MG Tab PO SCH (10:02)
[2022-10-26] MEDS: Acetaminophen 325 MG Tab PO PRN ×2 (14:06→21:37)
[2022-10-27] MEDS: Ibuprofen 600 MG Tab PO PRN ×2 (00:25→06:30)
[2022-10-27] MEDS: Acetaminophen 325 MG Tab PO PRN (06:29)
[2022-10-27] MEDS: Docusate Sodium 100 MG Cap PO PRN (06:31)
[2022-10-27] MEDS: Sertraline 50 MG Tab PO SCH (15:20)
== END 2022-10-27 14:40 | disposition home or self-care (01) | DRG 807 ==
LOC: JD.OB 01:45 → OBSVTOIN 10-26 01:45 → JD.OB 10-26 01:50
PROVIDERS: ADMIT Obstetrics & Gynecology; ATTEND Obstetrics & Gynecology
PROC: 10E0XZZ Delivery of Products of Conception, External Approach (ICD-10-PCS; principal; 2022-10-26)
PROC: 0KQM0ZZ Repair Perineum Muscle, Open Approach (ICD-10-PCS; 2022-10-26)
PROC: 10907ZC Drainage of Amniotic Fluid, Therapeutic from Products of Conception, Via Natural or Artificial Opening (ICD-10-PCS; 2022-10-26)
PROC: 3E0R3BZ Introduction of Anesthetic Agent into Spinal Canal, Percutaneous Approach (ICD-10-PCS; 2022-10-26)
PROC: 00HU33Z Insertion of Infusion Device into Spinal Canal, Percutaneous Approach (ICD-10-PCS; 2022-10-26)
DX: O34.33 Maternal care for cervical incompetence, third trimester (principal); Z37.0 Single live birth; O99.824 Streptococcus B carrier state complicating childbirth; O70.1 Second degree perineal laceration during delivery; O77.0 Labor and delivery complicated by meconium in amniotic fluid; O99.344 Other mental disorders complicating childbirth; O99.284 Endocrine, nutritional and metabolic diseases complicating childbirth; E03.9 Hypothyroidism, unspecified; F32.A Depression, unspecified; O99.52 Diseases of the respiratory system complicating childbirth; J45.909 Unspecified asthma, uncomplicated; Z3A.38 38 weeks gestation of pregnancy; Z88.5 Allergy status to narcotic agent; Z91.018 Allergy to other foods; Z91.048 Other nonmedicinal substance allergy status; Z79.899 Other long term (current) drug therapy
CPT/HCPCS: 36415; 51702; 59025; 59409; 80053; 85027; 86592; 86850; 86900; 86901; A9270-GY; J0290; J2405; J2590; J3010; J3490; J7120

== ENCOUNTER 2024-10-06 23:53 | Day surgery (SDC) | payer OTHER ==
[2024-10-07] MEDS ORDERED: Sodium Chloride 0.9% 10 ML Syringe FLUSH PRN ×2 (00:38→04:24)
[2024-10-07 01:07] LABS: BASOPHILS ABSOLUTE AUTO 0.1 K/mm3 (0.0-0.2); BASOPHILS PERCENT AUTO 0.3 % (0.0-1.0); EOSINOPHILS ABSOLUTE AUTO 0.0 K/mm3 (0.0-0.4); EOSINOPHILS PERCENT AUTO 0.2 % (0.0-6.0); IMMATURE GRAN ABSOLUTE AUTO 0.08 K/mm3 (0.00-0.05); IMMATURE GRAN PERCENT AUTO 0.5 % (0.0-0.4); LYMPHOCYTES ABSOLUTE AUTO 1.6 K/mm3 (1.0-4.8); LYMPHOCYTES PERCENT AUTO 11.0 % (24.0-44.0); MEAN PLATELET VOLUME 8.7 fl (9.4-12.3); MONOCYTES ABSOLUTE AUTO 0.8 K/mm3 (0.0-0.8); MONOCYTES PERCENT AUTO 5.2 % (0.0-8.0); NEUTROPHILS ABSOLUTE AUTO 12.1 K/mm3 (1.8-7.7); NEUTROPHILS PERCENT AUTO 82.8 % (41.0-71.0); NRBC ABSOLUTE 0.00 (0.00-0.02); NRBC PERCENT 0.0 % (0.0-0.2); PLATELET COUNT,PLT 225 K/mm3 (150-400); RED BLOOD CELL COUNT 3.85 M/mm3 (4.10-5.30); WHITE BLOOD CELL COUNT,WBC 14.67 K/mm3 (3.9-11.3)
[2024-10-07 01:32] LABS: A/G RATIO 1.0 (1-2); ALANINE AMINOTRANSFERASE,ALT 24.0 U/L (14-59); ASPARTATE AMNIOTRANSFERASE,AST 19.0 U/L (15-37); BILIRUBIN TOTAL 0.3 mg/dL (0.2-1.0); BLOOD UREA NITROGEN,BUN 16.0 mg/dL (7-18); CARBON DIOXIDE,CO2 25.0 mEq/L (21-32); CHLORIDE,CL 101.0 mEq/L (98-107); CREATININE 0.6 mg/dL (0.55-1.02); EST CRCL DRUG DOSING (CG) 123.63 mL/min; ESTIMATED GFR 118.0 mL/min (>60); GLUCOSE RANDOM 106.0 mg/dL (70-99); POTASSIUM,K 3.6 mEq/L (3.5-5.1); PROTEIN TOTAL,TP 6.5 g/dl (6.4-8.2); SODIUM,NA 135.0 mEq/L (136-145)
[2024-10-07 03:12] LABS: APPEARANCE,URINE CLEAR (Clear); GLUCOSE,URINE NEGATIVE (Negative); OCCULT BLOOD,URINE 3+ (Negative)
[2024-10-07 03:24] LABS: EPITHELIAL CELLS,URINE 0-5 /hpf (0-5)
[2024-10-07] MEDS ORDERED: Lidocaine 1% with EPINEPHrine 1:100,000 20 ML MDV ONE (03:49)
[2024-10-07] MEDS ORDERED: propofoL 500 MG/50 ML 50 ML ONE (03:50)
[2024-10-07] MEDS ORDERED: Midazolam 1 MG/ML 2 ML SDV ONE (03:50)
[2024-10-07] MEDS ORDERED: fentaNYL 100 MCG/2 ML SDV ONE (03:50)
[2024-10-07] MEDS ORDERED: Glycopyrrolate 0.2 MG/ML 2 ML SDV ONE (04:17)
[2024-10-07] MEDS ORDERED: dexmedeTOMIDine HCl 200 MCG/2 ML SDV ONE (04:17)
[2024-10-07] MEDS ORDERED: ePHEDrine 50 MG/ML SDV ONE (04:17)
[2024-10-07] MEDS ORDERED: Lactated Ringers 1,000 ML ONE (04:22)
[2024-10-07] MEDS ORDERED: Ondansetron 4 MG/2 ML SDV IVPUSH PRN (04:24)
[2024-10-07] MEDS ORDERED: fentaNYL 100 MCG/2 ML SDV IVPUSH PRN (04:24)
[2024-10-07] MEDS ORDERED: Lactated Ringers 1,000 ML IV SCH (04:30)
[2024-10-07] MEDS ORDERED: Sodium Chloride 0.9% 10 ML Syringe FLUSH SCH (09:00)
== END 2024-10-07 06:35 | disposition home or self-care (01) ==
LOC: JD.ED 23:53 → JD.SDS 10-07 03:48
PROVIDERS: ATTEND Obstetrics & Gynecology
DX: O03.4 Incomplete spontaneous abortion without complication (principal); E03.9 Hypothyroidism, unspecified; F32.A Depression, unspecified; Z88.8 Allergy status to other drugs, medicaments and biological substances; Z79.890 Hormone replacement therapy; Z79.899 Other long term (current) drug therapy
CPT/HCPCS: 36415; 59812; 76817; 80053; 81001; 83735; 84702; 85018; 85025; 86850; 86900; 86901; 96360; 96361; 99285; A9270; J1596; J2004; J2210; J2250; J2704; J3010; J7030; J7120; J3490